=== PATIENT | female | born 2000 | race African-American/Black ===

== ENCOUNTER 2022-03-07 01:16 | Emergency (ER) | payer MEDICAID ==
[~2022-03-07] VITALS: Ht 162.6 cm; Wt 153.0 kg
[2022-03-07 01:53] VITALS: BP 121/75
== END 2022-03-07 06:56 | disposition home or self-care (01) ==
LOC: ER 01:16
DX: R20.2 Paresthesia of skin (principal)
CPT/HCPCS: 72125

== ENCOUNTER 2024-12-21 13:08 | Emergency (ER) | payer MEDICAID ==
[~2024-12-21] VITALS: Ht 160 cm; Wt 77.1 kg
[2024-12-21 15:39] LABS: Basophils # (auto) 0 10 ^3/uL (0-0.2); Basophils % (auto) 0.7 % (0.0-2.0); Eosinophils # (auto) 0.3 10 ^3/uL (0-0.8); Eosinophils % (auto) 5.9 % (0.0-7.0); Hematocrit 43.3 % (36.0-46.0); Hemoglobin 14.6 g/dL (12.2-16.2); Lymphocytes # (auto) 1.5 10 ^3/uL (0.4-5.4); Lymphocytes % (auto) 27.6 % (10.0-50.0); Mean Corpuscular Hemoglobin 29.8 pg (28.0-32.0); Mean Corpuscular Hgb Conc. 33.8 g/dL (32.0-36.0); Mean Corpuscular Volume 88.3 fL (80.0-100.0); Monocytes # (auto) 0.5 10 ^3/uL (0-1.3); Neutrophils % (auto) 56.8 % (37.0-80.0); Platelet Count (auto) 314 10^3/uL (140-450); Red Cell Distribution Width 12.8 % (11.8-14.3); White Blood Cell 5.3 10^3/uL (4.4-10.8)
[2024-12-21 15:49] LABS: Chloride 102 mmol/L (98-107); Potassium 3.7 mmol/L (3.5-5.1); Sodium 138 mmol/L (136-145)
[2024-12-21 15:50] LABS: Anion Gap 9 (5-15); Carbon Dioxide 27 mmol/L (20-31)
[2024-12-21 15:55] LABS: BUN/Creatinine Ratio 11.3 (10.0-20.0); Glucose 102 mg/dL (74-106)
[2024-12-21 15:56] LABS: Blood Urea Nitrogen 9 mg/dL (9-23); Calcium 10.6 mg/dL (8.7-10.4)
--- NOTE | 2024-12-21 16:19 | ED.PDOC ---
Musculoskeletal HPI Comments 24 year old female presents to the ED for the c/c of swelling and tenderness to the 3rd finger on left hand. Pt states that she was bitten by her dog 2x days ago, and notes of a slight puncture wounds that is approx 1mm in diameter to the roof of the mid nail bed. Pt states that she is experiencing pain, swelling, and throbbing around the puncture wound. Pt notes that her dog is vaccinated at this point in time. Denies restrictions in her movement. Denies fever, SOB, chest pain, abdominal pain, nausea, vomiting, diarrhea, headache, dizziness, vision changes, or numbness/tingling of extremities. No other symptoms or modifying factors reported at this time. Patient is alert and oriented x4 and has a stable gait. Chief Complaint: Upper Extremity Time Seen by MD: 16:08 Primary Care Provider: NONE Reviewed Notes: Nurses Notes, Medications, Allergies Allergies: Coded Allergies: Penicillins (Verified Allergy, Severe, 12/21/24) Home Meds Active Scripts Sulfamethoxazole W/Trimethopri (Bactrim Ds Tablet) 1 Tab Tb, 1 TAB PO BID for 5 Days, #10 TAB 0 Refills Prov:CLAYTON MONCADA NP 12/21/24 Amoxicillin & Pot Clavulanate (AUGMENTIN TABLET) 875 Mg Tb, 875 MG PO BID for 7 Days, #14 TAB 0 Refills Prov:CLAYTON MNOCADA NP 12/21/24 Information Source: Patient Mode of Arrival: Ambulatory Location: Left Extremity Location: Finger 3 Timing: Days Prehospital treatment: None Severity: Moderate Able to Move Extremity: Yes Bear Weight: Fully Pain: Moderate Hand Dominance: Right Mechanism: Spontaneous Circumstances: Other (Dog bite) Onset of Symptoms: After Trauma Symptoms: Swelling, Pain, Erythema DVT Risk Factors: NONE Associated signs and symptoms: Laceration, Swelling Past Medical History PAST MEDICAL HISTORY: Denies Surgical History: Denies all surgeries RUG WEAVER History: Denies all RUG WEAVER Hx Family History Family History: Reviewed,noncontributory to illness Social History Smoker: Non-Smoker Alcohol: Denies ETOH Use Drugs: Denies Drug Use Lives In: Home Constitutional: denies: chills, diaphoresis, fatigue, fever, malaise, sweats, weakness, others EENTM: denies: blurred vision, double vision, ear bleeding, ear discharge, ear drainage, ear pain, ear ringing, eye pain, eye redness, hearing loss, mouth pain, mouth swelling, nasal discharge, nose bleeding, nose congestion, nose pain, photophobia, tearing, throat pain, throat swelling, voice changes, others Respiratory: denies: cough, hemoptysis, orthopnea, SOB at rest, shortness of breath, SOB with excertion, stridor, wheezing, others Cardiovascular: denies: chest pain, dizzy spells, diaphoresis, Dyspnea on exertion, edema, irregular heart beat, left arm pain, lightheadedness, palpitations, PND, syncope, others Gastrointestinal: denies: abdomen distended, abdominal pain, blood streaked bowels, constipated, diarrhea, dysphagia, difficulty swallowing, hematemesis, melena, nausea, poor appetite, poor fluid intake, rectal bleeding, rectal pain, vomiting, others Genitourinary: denies: abnormal vagina bleeding, burning, dyspareunia, dysuria, flank pain, frequency, hematuria, incontinence, pain, , vagina discharge, urgency, others Neurological: denies: dizziness, fainting, headache, left sided numbness, left sided weakness, numbness, paresthesia, pre-existing deficit, right sided numbness, right sided weakness, seizure, speech problems, tingling, tremors, weakness, others Musculoskeletal: reports: others (pain and erythema to 3rd finger on left hand); denies: back pain, gout, joint pain, joint swelling, muscle pain, muscle stiffness, neck pain Integumetry: denies: bruises, change in color, change in hair/nails, dryness, laceration, lesions, lumps, rash, wounds, others Allergic/Immunocompromised: denies: Difficulty Healing, Frequent Infections, Hives, Itching, others Hematologic/Lymphatic: denies: anemia, blood clots, easy bleeding, easy bruising, swollen glands, others Endocrine: denies: excessive hunger, excessive sweating, excessive thirst, excessive urination, flushing, intolerance to cold, intolerance to heat, unexplained weight gain, unexplained weight loss, others Psychiatric: denies: anxiety, bipolar disorder, depression, hopeless, panic disorder, schizophrenia, sleepless, suicidal, others All Other Systems: Reviewed and Negative Physical Exam General Appearance: No Apparent Distress, Normal HEENT: Normal ENT Inspection, Pharynx Normal, TMs Normal Neck: Full Range of Motion, Non-Tender, Normal, Normal Inspection Respiratory: Chest Non-Tender, Lungs Clear, No Accessory Muscle Use, No Respiratory Distress, Normal Breath Sounds Cardiovascular: No Edema, No JVD, No Murmur, No Gallop, Normal Peripheral Pulses, Regular Rate/Rhythm Breast Exam: Deferred Gastrointestinal: No Organomegaly, Non Tender, No Pulsatile Mass, Normal Bowel Sounds, Soft Genitalia: Deferred Pelvic: Deferred Rectal: Deferred Extremities: No calf tenderness, Normal capillary refill, Normal inspection, Normal range of motion, Non-tender, No pedal edema Musculoskeletal : Location: Left Extremity Location: Finger 3 (Mild swelling to left 3rd phalynx, 1mm puncture wound to nail bed w/ erythmia and pain upon palpitation, Full rom of the DIP and PIP, FDS and FDP are intact) Apperance: Normal Neurologic: Alert, No Motor Deficits, Normal Mood Cerebellar Function: Normal Reflexes: Normal Skin: Dry, Normal Color, Warm Lymphatic: No Adenopathy Was a procedure done? Was a procedure done?: No Differential Diagnosis EXT Differential Diagnosis: Fracture, Sprain, Laceration, Contusion, Strain X-Ray, Labs, Meds, VS Vital Signs Date Time Temp Pulse Resp B/P (MAP) Pulse Ox O2 Delivery O2 Flow Rate FiO2 12/21/24 17:10 98.6 68 16 128/68 (88) 98 98.6 12/21/24 17:10 68 16 98 Room Air 12/21/24 13:08 98.3 67 16 128/65 (86) 98 98.3 Lab Test 12/21/24 15:32 Range/Units White Blood Count 5.3 4.4-10.8 10^3/uL Red Blood Count 4.90 4.0-5.20 10^6/uL Hemoglobin 14.6 12.2-16.2 g/dL Hematocrit 43.3 36.0-46.0 % Mean Corpuscular Volume 88.3 80.0-100.0 fL Mean Corpuscular Hemoglobin 29.8 28.0-32.0 pg Mean Corpuscular Hemoglobin Concent 33.8 32.0-36.0 g/dL Red Cell Distribution Width 12.8 11.8-14.3 % Platelet Count 314 140-450 10^3/uL Mean Platelet Volume 9.1 6.9-10.8 fL Neutrophils (%) (Auto) 56.8 37.0-80.0 % Lymphocytes (%) (Auto) 27.6 10.0-50.0 % Monocytes (%) (Auto) 9.0 0.0-12.0 % Eosinophils (%) (Auto) 5.9 0.0-7.0 % Basophils (%) (Auto) 0.7 0.0-2.0 % Neutrophils # (Auto) 3.0 1.6-8.6 10 ^3/uL Lymphocytes # (Auto) 1.5 0.4-5.4 10 ^3/uL Monocytes # (Auto) 0.5 0-1.3 10 ^3/uL Eosinophils # (Auto) 0.3 0-0.8 10 ^3/uL Basophils # (Auto) 0 0-0.2 10 ^3/uL Nucleated Red Blood Cells 0.0 % Sodium Level 138 136-145 mmol/L Potassium Level 3.7 3.5-5.1 mmol/L Chloride Level 102 98-107 mmol/L Carbon Dioxide Level 27 20-31 mmol/L Anion Gap 9 5-15 Blood Urea Nitrogen 9 9-23 mg/dL Creatinine 0.80 0.550-1.02 mg/dL Glomerular Filtration Rate Calc 105 >90 mL/min BUN/Creatinine Ratio 11.3 10.0-20.0 Serum Glucose 102 74-106 mg/dL Calcium Level 10.6 H 8.7-10.4 mg/dL Current Medications Medications (Trade) Dose Ordered Sig/Kristi Route Start Time Stop Time Status Last Admin Lidocaine HCl (Xylocaine 1%) ONCE ONCE ID 12/21/24 16:15 12/21/24 16:16 DC 12/21/24 16:27 Diphtheria/ Tetanus/Acell Pertussis (Boostrix T-Dap) 0.5 ml ONCE ONCE IM 12/21/24 16:15 12/21/24 16:16 DC 12/21/24 16:27 PATIENT: SOL SCHULTE ACCT: [id number] UNIT: [id number] : 2000 LOC: ER ROOM / BED: / AGE / SEX: 24 / F ADM STATUS: REG ER SERVICE 1525 ORDERING PHYSICIAN: CLAYTON MONCADA SOLVENT RECOVERER PROCEDURE(s): LHAN - L HAND 3V XRAY REASON: R/o fracture. S/P dog bite ORDER NUMBER(s): [id number], ACCESSION NUMBER(s): [id number] INDICATION: R/o fracture. S/P dog bite TECHNIQUE: 4 radiographic views of the left hand were obtained. COMPARISON: None FINDINGS: The intercarpal, carpal-metacarpal, proximal and distal interphalangeal joints appear unremarkable.There is no evidence of acute fracture or dislocation.The visualized joint space is well maintained.The a lignment is anatomical.The surrounding soft tissues are unremarkable.There is no bony lesions or erosions identified. IMPRESSION: 1. No acute fracture or dislocation X-Ray, Labs, Meds, VS Comment 24 year old female presents to the ED for the c/c of swelling and tenderness to the 3rd finger on left hand. Based on the history, exam, and test performed, there does not seem to be a retained foreign body, nerve injury, vascular injury, tendon injury, bone injury or foreign body. Wound appears clean. Mild purulent discharge from the puncture wound. Discharge was drained with gentle traction of the phalanx. Tolerated well. Doubtful for rabies as the dog is not a wild animal. No rabies vaccine given. TDAP updated Wound cleaned in the ER with jet irrigation. Will let wound heal by secondary intention to decrease risk of abscess formation. Patient will be discharged home with prophylactic antibiotics. Patient to [facility] with [facility] or PCP in 2-3 days for wound re- check. Return to ER as needed. Time of 1ST Reevaluation: 16:44 Reevaluation 1ST: Improved Patient Education/Counseling: Diagnosis, Treatment Family Education/Counseling: No Family Present Departure 1 Departure Time of Disposition: 16:58 Impression: Primary Impression: Cellulitis of left middle finger Additional Impression: Dog bite Qualified Codes: W54.0XXA - Bitten by dog, initial encounter Disposition: HOME / SELF CARE / HOMELESS Condition: Stable e-Prescriptions Sulfamethoxazole W/Trimethopri (Bactrim Ds Tablet) 1 Tab Tb 1 TAB PO BID for 5 Days, #10 TAB 0 Refills Prov: CLAYTON MONCADA SOLVENT RECOVERER 12/21/24 Amoxicillin & Pot Clavulanate (AUGMENTIN TABLET) 875 Mg Tb 875 MG PO BID for 7 Days, #14 TAB 0 Refills Prov: CLAYTON MONCADA NP 12/21/24 Critical Care Note Critical Care Time?: No Stability Stability form required: No Heart Score Heart Score: Heart Score Response (Comments) Value History N/A 0 EKG N/A 0 Age N/A 0 Risk Factors N/A 0 Troponin N/A 0 Total 0 I personally scribed for CLAYTON MONCADA NP ([email or web address]) on 12/21/24 at 16:19. Electronically submitted by Chris Schumacher ([employer]). I personally scribed for CLAYTON MONCADA NP ([email or web address]) on 12/21/24 at 16:35. Electronically submitted by Chris Schumacher ([employer]). CLAYTON MONCADA NP December 21, 2024 16:19
--- NOTE | 2024-12-21 16:25 | DVH ---
INDICATION: R/o fracture. S/P dog bite TECHNIQUE: 4 radiographic views of the left hand were obtained. COMPARISON: None FINDINGS: The intercarpal, carpal-metacarpal, proximal and distal interphalangeal joints appear unrem arkable.There is no evidence of acute fracture or dislocation.The visualized joint space is well main tained.The alignment is anatomical.The surrounding soft tissues are unremarkable.There is no bony les ions or erosions identified. IMPRESSION: 1. No acute fracture or dislocation
[2024-12-21] MEDS: TETANUS-DIPTH-ACEL PERTUSSIS 0.5ML SYR Tdap IM ONE (16:27)
[2024-12-21] MEDS: LIDOCAINE 1% HCL (LOCAL ANESTH.) INJ 20ML MDV ID ONE (16:27)
[2024-12-21] MEDS ORDERED: AUG875T PO (17:02)
[2024-12-21] MEDS ORDERED: BACDST PO (17:02)
[2024-12-21 17:10] VITALS: BP 128/68; PULSE 68; RESP 16; TEMP 98.6; O2SAT 98
== END 2024-12-21 17:12 | disposition home or self-care (01) ==
LOC: ER 13:11
DX: S61.233A Puncture wound without foreign body of left middle finger without damage to nail, initial encounter (principal); L03.012 Cellulitis of left finger; Z88.0 Allergy status to penicillin; Z79.899 Other long term (current) drug therapy; W54.0XXA Bitten by dog, initial encounter; Y93.89 Activity, other specified; Y92.89 Other specified places as the place of occurrence of the external cause; Y99.8 Other external cause status
CPT/HCPCS: 36415; 73130; 80048; 85025; 90471; 90715; 99284; J2003

== ENCOUNTER 2025-02-02 10:14 | Emergency (ER) | payer MEDICAID ==
[~2025-02-02] VITALS: Ht 160 cm; Wt 83.9 kg
[~2025-02-02 10:14] MED LIST: AUG875T PO; BACDST PO
[2025-02-02 10:26] VITALS: TEMP 98.6
[2025-02-02] MEDS: methylPREDNISolone SOD SUCC 125 MG/2 ML VL IM ONE (10:41)
[2025-02-02 10:44] VITALS: BP 107/71; PULSE 95; RESP 18; O2SAT 100
--- NOTE | 2025-02-02 10:51 | ED.PDOC ---
History of Present Illness(SKN HPI Comments 24y F who presents to the ED for chief complaint of bilateral lower extremity swelling and pain. Pt states she has been having bilateral lower extremity swelling and pain for the past 3x days. Pt states she has history of eczema and has states she has been taking Cera Ve lotion but states it has not been helping. Pt rates her pain 7/10, constant, with noted exacerbating pain with movement or ambulating and no relieving factors. Pt states she has not seen a [employer] for her symptoms. Pt otherwise denies fever, chills, shortness of breath or associated symptoms. Pt denies any other symptoms at this time. Chief Complaint: Extremity Swelling Time Seen by MD: 10:47 Primary Care Provider: ZAKI History of Present Illness: Medications, Allergies Allergies: Coded Allergies: Penicillins (Verified Allergy, Severe, 12/21/24) Home Meds Active Scripts Fluocinolone Acetonide (Fluocinolone Acetonide) 0.01 % Cre, 0.01 % EX TID for 7 Days, #120 GRAMS 0 Refills Apply a thin layer to the affected areas 2-3 times daily. Not recommended for use more than two weeks. Prov:CLAYTON MONCADA NP 02/02/25 Sulfamethoxazole W/Trimethopri (Bactrim Ds Tablet) 1 Tab Tb, 1 TAB PO BID for 5 Days, #10 TAB 0 Refills Prov:CLAYTON MONCADA NP 12/21/24 Amoxicillin & Pot Clavulanate (AUGMENTIN TABLET) 875 Mg Tb, 875 MG PO BID for 7 Days, #14 TAB 0 Refills Prov:CLAYTON MONCADA NP 12/21/24 Information Source: Patient Mode of Arrival: Ambulatory Past Medical History PAST MEDICAL HISTORY: Denies Surgical History: Denies all surgeries RN DISEASE MANAGEMENT History: Denies all RN DISEASE MANAGEMENT Hx Family History Family History: Reviewed,noncontributory to illness Social History Smoker: Non-Smoker Alcohol: Denies ETOH Use Drugs: Denies Drug Use Lives In: Home Integumetry: reports: others All Other Systems: Reviewed and Negative (see hpi) Physical Exam General Appearance: No Apparent Distress, Normal HEENT: Normal ENT Inspection, Pharynx Normal, TMs Normal Neck: Full Range of Motion, Non-Tender, Normal, Normal Inspection Respiratory: Chest Non-Tender, Lungs Clear, No Accessory Muscle Use, No Respiratory Distress, Normal Breath Sounds Cardiovascular: No Edema, No JVD, No Murmur, No Gallop, Normal Peripheral Pulses, Regular Rate/Rhythm Breast Exam: Deferred Gastrointestinal: No Organomegaly, Non Tender, No Pulsatile Mass, Normal Bowel Sounds, Soft Genitalia: Deferred Pelvic: Deferred Rectal: Deferred Extremities: Other (scaly, erythematous, papules and plaques to bilateral lower extremities, ) Musculoskeletal : Apperance: Normal Neurologic: Alert, database analyst II-XII nml as Tested, No Motor Deficits, Normal Affect, Normal Mood, No Sensory Deficits Cerebellar Function: Normal Reflexes: Normal Skin: Dry, Normal Color, Warm Lymphatic: No Adenopathy Was a procedure done? Was a procedure done?: No Differential Diagnosis (INTG) Differential Diagnosis: Atopic dermatitis, Cellulitis, Contact Dermatitis Abscess: Bacteremia X-Ray, Labs, Meds, VS Vital Signs Date Time Temp Pulse Resp B/P (MAP) Pulse Ox O2 Delivery O2 Flow Rate FiO2 02/02/25 10:44 95 18 107/71 (83) 100 02/02/25 10:44 95 18 100 Room Air 02/02/25 10:26 98.6 104 16 105/64 (78) 99 98.6 Lab Test 02/02/25 10:38 02/02/25 10:29 Range/Units White Blood Count 5.4 4.4-10.8 10^3/uL Red Blood Count 4.34 4.0-5.20 10^6/uL Hemoglobin 13.0 12.2-16.2 g/dL Hematocrit 38.2 36.0-46.0 % Mean Corpuscular Volume 88.0 80.0-100.0 fL Mean Corpuscular Hemoglobin 30.0 28.0-32.0 pg Mean Corpuscular Hemoglobin Concent 34.1 32.0-36.0 g/dL Red Cell Distribution Width 12.5 11.8-14.3 % Platelet Count 304 140-450 10^3/uL Mean Platelet Volume 9.2 6.9-10.8 fL Neutrophils (%) (Auto) 54.1 37.0-80.0 % Lymphocytes (%) (Auto) 24.2 10.0-50.0 % Monocytes (%) (Auto) 8.6 0.0-12.0 % Eosinophils (%) (Auto) 12.7 H 0.0-7.0 % Basophils (%) (Auto) 0.4 0.0-2.0 % Neutrophils # (Auto) 2.9 1.6-8.6 10 ^3/uL Lymphocytes # (Auto) 1.3 0.4-5.4 10 ^3/uL Monocytes # (Auto) 0.5 0-1.3 10 ^3/uL Eosinophils # (Auto) 0.7 0-0.8 10 ^3/uL Basophils # (Auto) 0 0-0.2 10 ^3/uL Nucleated Red Blood Cells 0.2 % Sodium Level 142 136-145 mmol/L Potassium Level 3.7 3.5-5.1 mmol/L Chloride Level 106 98-107 mmol/L Carbon Dioxide Level 27 20-31 mmol/L Anion Gap 9 5-15 Blood Urea Nitrogen 12 9-23 mg/dL Creatinine 0.76 0.550-1.02 mg/dL Glomerular Filtration Rate Calc 112 >90 mL/min BUN/Creatinine Ratio 15.8 10.0-20.0 Serum Glucose 92 74-106 mg/dL Calcium Level 10.1 8.7-10.4 mg/dL Urine Color Yellow Yellow Urine Clarity Clear Clear Urine pH 5.5 5.0-9.0 Urine Specific [place] 1.030 1.001-1.035 Urine Protein Trace H Negative Urine Ketones Negative Negative Urine Blood Negative Negative /uL Urine Nitrite Negative Negative Urine Bilirubin Negative Negative Urine Urobilinogen Normal Negative mg/dL Urine Leukocyte Esterase Negative Negative /uL Urine RBC None seen 0 - 4 /hpf Urine Microscopic WBC 1 0-5 /HPF Urine Squamous Epithelial Cells Few <5 /hpf Urine Bacteria None seen None Seen /hpf Urine Mucus Few None Seen Urine Glucose Normal Normal mg/dL Urine Test Negative Negative Current Medications Medications (Trade) Dose Ordered Sig/Kristi Route Start Time Stop Time Status Last Admin Methylprednisolone Sodium Succinate (Solu Medrol) 125 mg ONCE ONCE IM 02/02/25 10:45 02/02/25 10:46 DC 02/02/25 10:[address] [address] Ph: [phone] DIAGNOSTIC IMAGING Diagnostic Imaging Report : [id number] Signed PATIENT: SOL SCHULTE SACCT: [id number] UNIT: [id number] : 2000 LOC: ER ROOM / BED: / AGE / SEX: 24 / F ADM STATUS: REG ER SERVICE 1031 ORDERING PHYSICIAN: CLAYTON MONCADA NP PROCEDURE(s): BLDVT - BiLat Lower DVT REASON: BLE pain ORDER NUMBER(s): [id number], ACCESSION NUMBER(s): [id number] Bilateral lower extremity venous duplex Clinical History: BLE pain Comparison: None Technique: Duplex Doppler evaluation of the deep venous systems of both lower extremities from the common femoral veins to the popliteal veins including color Doppler and spectral/pulsed waveform analysis was performed. Findings: RIGHT SIDE: The common femoral vein demonstrates appropriate compressibility and waveform variability. There is compressibility/patency of the great saphenous vein at the proximal thigh. The femoral vein demonstrates appropriate compressibility and waveform variability. The deep femoral vein demonstrates appropriate compressibility and waveform variability. The popliteal vein demonstrates appropriate compressibility and waveform variability. There is normal compressibility at the tibioperoneal trunk. LEFT SIDE: The common femoral vein demonstrates appropriate compressibility and waveform variability. There is compressibility/patency of the great saphenous vein at the proximal thigh. The femoral vein demonstrates appropriate compressibility and waveform variability. The deep femoral vein demonstrates appropriate compressibility and waveform variability. The popliteal vein demonstrates appropriate compressibility and waveform variability. There is normal compressibility at the tibioperoneal trunk. Impression: No right or left femoropopliteal venous thrombosis. ATED BY: ZACHARY NEGRETE MD DICTATED DATE/TIME: 02/02/25 1133 SIGNED BY: ZACHARY NEGRETE MD SIGNED DATE/TIME: 02/02/25 1133 CC: X-Ray, Labs, Meds, VS Comment 24y F who presents to the ED for chief complaint of bilateral lower extremity swelling and pain. Patient arrives alert and oriented, ABC's intact, afebrile, vital signs stable, saturating well in room air Peripheral IV insertion+ labs were ordered. CBC was ordered to exclude anemia, blood loss, or infection. BMP was ordered to exclude electrolyte abnormalities, renal failure, dehydration, hyperglycemia CMP was ordered to exclude electrolyte abnormalities, renal failure, dehydration, hyperglycemia and/or liver enzyme abnormalities. PT and INR were ordered to rule out coagulopathy. Troponin and BNP were ordered to rule out myocardial infarction, or congestive heart failure. Urinalysis was ordered to rule out UTI or hematuria. Diagnostic imaging ordered by me and results interpreted by radiology : PROCEDURE(s): BLDVT - BiLat Lower DVT Impression: No right or left femoropopliteal venous thrombosis. Labs in the ED showed (pertinent+ and then pertinent-) Patient was given:_. Tolerated medications with no adverse reaction. Additional MDM Review of External, Non-ED records: External records reviewed. Discussion with independent historian (EMS, family) history obtained from the patient/parents (if applicable) at bedside Chronic conditions affecting care: None Social determinants of health affecting care: None Consideration of admission (observation or admission): I considered escalation of care to admission for this patient, however given the reassuring workup, the patient is safe for outpatient management. Discussion with the Radiology: No Tests considered but not performed: Prescription medication considered but not given: 12 lead EKG interpretation: Patient Education/Counseling: Diagnosis, Treatment Family Education/Counseling: No Family Present SEPSIS Sepsis Screen Date sepsis recognized/suspect: Feb 02, 2025 Time Sepsis recognized/suspect: 1026 Recent Procedure: No On Antibiotic Therapy: No Respiratory Rate >20: No Heart Rate >90: Yes Temp<36 C (96.8 F) or >38.3 C: No SBP <90 or MAP <65 mmHG: No New Acute Mental Status Change: No Is the patient on CPAP, BIPAP,: No Physician Orders Bilat Lower Dvt (02/02/25 10:31) Vital Signs Date Time Temp Pulse Resp B/P (MAP) Pulse Ox O2 Delivery O2 Flow Rate FiO2 02/02/25 10:44 95 18 107/71 (83) 100 02/02/25 10:44 95 18 100 Room Air 02/02/25 10:26 98.6 104 16 105/64 (78) 99 98.6 Laboratory Tests Test 02/02/25 10:38 White Blood Count 5.4 10^3/uL (4.4-10.8) Medications Medications Dose Ordered Sig/Kristi Route Start Time Stop Time Status Last Admin Dose Admin Methylprednisolone Sodium Succinate 125 mg ONCE ONCE IM 02/02/25 10:45 02/02/25 10:46 DC 02/02/25 10:41 Departure 1 Departure Time of Disposition: 11:48 Impression: Primary Impression: Atopic dermatitis Qualified Codes: L20.9 - Atopic dermatitis, unspecified Disposition: HOME / SELF CARE / HOMELESS Condition: Stable e-Prescriptions Fluocinolone Acetonide (Fluocinolone Acetonide) 0.01 % Cre 0.01 % EX TID for 7 Days, #120 GRAMS 0 Refills Apply a thin layer to the affected areas 2-3 times daily. Not recommended for use more than two weeks. Prov: CLAYTON MONCADA NP 02/02/25 Critical Care Note Critical Care Time?: No Stability Stability form required: No Heart Score Heart Score: Heart Score Response (Comments) Value History N/A 0 EKG N/A 0 Age N/A 0 Risk Factors N/A 0 Troponin N/A 0 Total 0 I personally scribed for CLAYTON MONCADA NP (DEDE) on 02/02/25 at 10:51. Electronically submitted by Mary Lancaster ([employer]). I personally scribed for CLAYTON MONCADA NP (DEDE) on 02/02/25 at 12:01. Electronically submitted by Mary Lancaster ([employer]). CLAYTON MONCADA NP Feb 02, 2025 10:51
[2025-02-02 10:58] LABS: Hematocrit 38.2 % (36.0-46.0); Hemoglobin 13.0 g/dL (12.2-16.2); Mean Corpuscular Hemoglobin 30.0 pg (28.0-32.0); Mean Corpuscular Volume 88.0 fL (80.0-100.0); Nucleated Red Blood Cells % 0.2 %
[2025-02-02 11:00] LABS: Anion Gap 9 (5-15); Carbon Dioxide 27 mmol/L (20-31); Chloride 106 mmol/L (98-107); Potassium 3.7 mmol/L (3.5-5.1); Sodium 142 mmol/L (136-145)
[2025-02-02 11:01] LABS: Calcium 10.1 mg/dL (8.7-10.4)
[2025-02-02 11:04] LABS: Urine Protein, UAD TRACE (Negative)
[2025-02-02 11:05] LABS: Glucose 92 mg/dL (74-106)
[2025-02-02 11:06] LABS: BUN/Creatinine Ratio 15.8 (10.0-20.0); Blood Urea Nitrogen 12 mg/dL (9-23)
--- NOTE | 2025-02-02 11:35 | DVH ---
Bilateral lower extremity venous duplex Clinical History: BLE pain Comparison: None Technique: Duplex Doppler evaluation of the deep venous systems of both lower extremities from the common femora l veins to the popliteal veins including color Doppler and spectral/pulsed waveform analysis was perf ormed. Findings: RIGHT SIDE: The common femoral vein demonstrates appropriate compressibility and waveform variability. There is compressibility/patency of the great saphenous vein at the proximal thigh. The femoral vein demonstrates appropriate compressibility and waveform variability. The deep femoral vein demonstrates appropriate compressibility and waveform variability. The popliteal vein demonstrates appropriate compressibility and waveform variability. There is normal compressibility at the tibioperoneal trunk. LEFT SIDE: The common femoral vein demonstrates appropriate compressibility and waveform variability. There is compressibility/patency of the great saphenous vein at the proximal thigh. The femoral vein demonstrates appropriate compressibility and waveform variability. The deep femoral vein demonstrates appropriate compressibility and waveform variability. The popliteal vein demonstrates appropriate compressibility and waveform variability. There is normal compressibility at the tibioperoneal trunk. Impression: No right or left femoropopliteal venous thrombosis.
[2025-02-02] MEDS ORDERED: [UNRECOGNIZED DRUG - CODE] EX (11:48)
== END 2025-02-02 12:02 | disposition home or self-care (01) ==
LOC: ER 10:14
DX: L20.9 Atopic dermatitis, unspecified (principal); Z88.0 Allergy status to penicillin; Z86.718 Personal history of other venous thrombosis and embolism
CPT/HCPCS: 36415; 80048; 81001; 81025; 85025; 93970; 96372; 99285; J2919